=== PATIENT | male | born 1975 | race Hispanic/Latino ===

== ENCOUNTER 2021-02-17 05:32 | Emergency (ER) | payer SELFPAY ==
[2021-02-17] MEDS ORDERED: LIDOCAINE 1% MPF 30 ML VIAL ONE (06:00)
[2021-02-17] MEDS ORDERED: TETANUS & DIPHTHERIA TOX,ADULT 0.5 ML VIAL ONE (06:18)
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
[2021-02-17 07:34] VITALS: BP 105/81; O2SAT 99
[2021-02-17] MEDS ORDERED: CEFAZOLIN/SWI 1gm 1 GM/10 ML SYR ONE (07:35)
== END 2021-02-17 07:28 | disposition home or self-care (01) ==
LOC: EDBD 05:32 → ER 05:32
PROC: 0JQG0ZZ Repair Right Lower Arm Subcutaneous Tissue and Fascia, Open Approach (ICD-10-PCS; principal; 2021-02-17)
DX: S51.811A Laceration without foreign body of right forearm, initial encounter (principal); X99.1XXA Assault by knife, initial encounter; Z23 Encounter for immunization; F17.210 Nicotine dependence, cigarettes, uncomplicated
CPT/HCPCS: 90471; 90714; 96372; 99284; J0690